=== PATIENT | male | born 1970 | race Caucasian/White ===

== ENCOUNTER → 2017-09-07 | Outpatient (CLI) | payer OTHER ==
[~2017-09-07] MED LIST: ASPIR 8181 MG PO; BRILINTA90 MG PO; LIPITOR 20 MG T20 M1 PO; LISINOPRIL-HCT1 EACH PO; LISINOPRIL20 MG PO; METFORMIN HCL500 MG PO; NITROGLYCERIN0.4 MG SUBLING; NORVASC10 MG PO; ONGLYZA5 MG PO; TYLENOL EXTRA500 MG PO
== END ==
LOC: M.CT 13:43
DX: Z13.6 Encounter for screening for cardiovascular disorders (principal)

== ENCOUNTER 2017-11-04 09:53 | Observation (INO) | payer OTHER ==
[~2017-11-04] VITALS: Ht 193 cm; Wt 111.6 kg
[2017-11-04] VITALS (10 sets, daily range): BP systolic 110–167; BP diastolic 70–98
[~2017-11-04 09:53] MED LIST changes: -ASPIR 8181 MG PO; -BRILINTA90 MG PO; -LISINOPRIL-HCT1 EACH PO; -METFORMIN HCL500 MG PO; -NITROGLYCERIN0.4 MG SUBLING; -NORVASC10 MG PO; -TYLENOL EXTRA500 MG PO
[2017-11-04] MEDS ORDERED: NORVASC10 MG PO (10:07)
[2017-11-04] MEDS ORDERED: LISINOPRIL-HCT1 EACH PO (10:07)
[2017-11-04] MEDS ORDERED: ASPIR 8181 MG PO (10:08)
[2017-11-04] MEDS ORDERED: METFORMIN HCL500 MG PO (10:08)
[2017-11-04 10:22] LABS: HEMATOCRIT 44.9 % (42.0-52.0); HEMOGLOBIN 15.7 gm/dL (14.0-18.0); MCH 30.7 pg (26.0-34.0); MCV 87.9 fL (80.0-100.0); MPV 7.8 fl. (7.2-11.1); RBC 5.11 mil/uL (4.50-6.00); RDW-CV 13.2 % (10.5-14.5); WBC 6.6 thou/uL (4.0-11.0)
[2017-11-04 10:32] LABS: ANION GAP 9 mmol/L (7-16); BUN 17 mg/dL (7-18); CALCIUM 8.7 mg/dL (8.5-10.1); CHLORIDE 99 mmol/L (98-107); CO2 27 mmol/L (21-32); CREATININE 1.1 mg/dL (0.6-1.3); GLUCOSE 239 mg/dL (70-99); POTASSIUM 3.9 mmol/L (3.5-5.1); SODIUM 135 mmol/L (136-145)
[2017-11-04 10:34] LABS: APTT 27.5 Seconds (25.0-31.3); PROTIME 10.1 Seconds (9.20-11.50)
[2017-11-04 10:36] LABS: ALBUMIN 4.4 g/dL (3.4-5.0); ALKALINE PHOSPHATASE 61 U/L (46-116); CHOLESTEROL 152 mg/dL (<200); HDL CHOLESTEROL 39 mg/dL (>40); LDL CHOLESTEROL 72 mg/dL (<100); SGOT 18 U/L (15-37); SGPT 38 U/L (30-65); TC:HDL 3.9 Ratio (Not establshd); TOTAL BILIRUBIN 0.7 mg/dL (<0.1-1.0); TOTAL PROTEIN 8.2 g/dL (6.4-8.2); TRIGLYCERIDE 207 mg/dL (<150); VLDL 41 mg/dL (<40)
[2017-11-04 10:37] LABS: SERUM ASSESSMENT Clear
--- NOTE | 2017-11-04 12:08 | EKG ---
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1970 Requested By: Patrick Toro Order Number: [id number] Reading MD: Patrick Toro Measurements Intervals [place] Rate: 88 P: 24 MT: 146 QRS: -22 QRSD: 104 T: 54 QT: 372 QTc: 450 Interpretive Statements Sinus rhythm Borderline left axis deviation ST elev, probable normal early repol pattern Compared to ECG 07/31/2016 18:05:53 no change Electronically Signed On 11-04-2017 12:08:07 CDT by Patrick Toro [email or web address] <ELECTRONICALLY SIGNED> By: Patrick Toro MD, [facility] 11/04/17 1208 1039 1039 Patrick Toro MD, [facility] /EPI
--- NOTE | 2017-11-04 16:48 | EKG ---
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 11/04/17 1648 1506 1506 Patrick Toro MD, FACC /EPI
--- NOTE | 2017-11-04 18:05 | CARD ---
[address] [address] CARDIAC CATH REPORT Name: SUREKHA SANTAMARIA Room: [address]R.#: [id number] Admission: 11/04/17 Attend Phys: Patrick Toro MD, F Discharge: Date of : 72 Report #: [id number] THIS REPORT FOR: //name// APPROVED REPORT Study performed: 11/04/2017 11:29:04 Patient Details Patient Status: Out-Patient Room #: The patient is a 47 year-old male Event Personnel Patrick Toro Distribution Associate, Lorene Colon RN Fire Tender, Jessie Sin, Agnes Munoz RTR Scrub, Tina Reeves RN Fire Tender Procedures Performed Art Access - R radial artery Left Heart Cath w/or w/o Coronaries [facility]MA Place w/wo Plasty Single LAD Indication Positive stress test Risk Factors Arterial Hypertension, Hypercholesterolemia, Hypertension Procedure Narrative The patient was brought electively to the Cardiac Catheterization Laboratory and was prepped and draped in a sterile manner. The right wrist was infiltrated with 2% Lidocaine subcutaneous anesthesia. A Slender Glidesheath sheath was inserted into the right radial artery. Coronary angiography was performed using coronary diagnostic catheters. The right coronary system was accessed and visualized with a 6 FR JR4 catheter. The left coronary system was accessed and visualized with a 6FR JL4 catheter. The left ventricle was accessed and visualized with a 6FR ANGLED PIGTAIL catheter. Left ventricular/Aortic Valve gradient assessed via catheter pullback. Left ventriculogram was performed in STOREY projection. Closure device was deployed with a 6 Fr Vasc-Band Lng 27cm. The patient tolerated the procedure well and there were no complications associated with the procedure. There was no hematoma. Intraoperative Conscious Sedation Sedation start time: 12:19 Case end Time: 13:08 [place] [address] CARDIAC CATH REPORT Name: SUREKHA SANTAMARIA Room: [address] M.R.#: [id number] Admission: 11/04/17 Attend Phys: Patrick Toro MD, F Discharge: Date of : 72 Report #: [id number] Fentanyl 25 mcg Versed 1 mg Fluoro Time: 6.4 minutes Dose: DAP 14450 cGycm2 95.3 mGy Contrast Type and Amount: Omnipaque 290 ml Coronary Angiography The patient's coronary anatomy is co- dominant. Diagnostic Cath Left Main 0% stenosis LAD 70% stenosis after the first diagonal branch, and 80% after the second diagonal branch. Apical LAD appeared chronically occluded and had faint bridging collaterals Circumflex 0% stenosis Right Coronary 40% proximal and 70% distal stenosis Ramus small vessel Left Ventriculography The left ventricular ejection fraction is estimated to be 55-60%. Left ventricular wall motion abnormalities are not present. There is no mitral insufficiency. Hemodynamics The aortic pressure is 113/71 mmHg with a mean of 92 mmHg. The left ventricular pressure is 121/3 mmHg with a mean of mmHg. The left ventricular end diastolic pressure is 12 mmHg. There was no gradient across the aortic valve upon pullback. Pullback from the left ventricle to the aorta revealed no gradient across the aortic valve. PCI Technique Lesion Anticoagulation was achieved with Heparin. Patient was preloaded with Brillinta. Percutaneous coronary intervention was performed on the mid left anterior descending artery segment. The lesion stenosis prior to intervention was 80% with DELVIN 3 flow. A 6FR XB LAD 3.0 100CM Guide Catheter was used to engage the lm ostium. A IG: BMW 190cm Interventional Guidewire was used to cross the lesion. BALLOON DILATION A Balloon catheter Trek RX 2.5 X 15 was inserted and inflated up to 16.00atm for 13seconds. Repeat angiography revealed the following post-dilatation results: 50% stenosis. Additional Inflation: 16.00atm for 10seconds. Additional Inflation: 8.00atm for 15seconds[place] [address] CARDIAC CATH REPORT Name: SUREKHA SANTAMARIA Room: [address] M.R.#: [id number] Admission: 11/04/17 Attend Phys: Patrick Toro MD, F Discharge: Date of : 72 Report #: [id number] A drug-eluting stent Flye Alpine RX 2.75X38 was inserted and inflated up to 8.00atm for 15seconds. Additional Inflation: 11.00atm for 13seconds. Additional Inflation: 13.00atm for 13seconds. Final angiography reveals 0 % stenosis with DELVIN 3 flow. Conclusion 1. 70% and 80% stenoses noted in the mid lad 2. apical lad appeared chronically occluded 3. 70% stenosis noted of the distal rca 4. successful placement of a drug eluting stent in the mid lad Recommendations Cardiac Rehabilitation Referral Aggressive Medical Therapy Medications Administered Ticagrelor <ELECTRONICALLY SIGNED> By: Patrick Toro MD, [facility] 11/04/171804 04 04Patrick Toro MD, FAC /INF
--- NOTE | 2017-11-04 18:29 | H ---
[place] [address] HISTORY AND PHYSICAL Name: SUREKHA SANTAMARIA Room: [address] M.R.#: [id number] Admission: 11/04/17 Attend Phys: Patrick Toro MD, F Discharge: Date of : 72 Report #: [id number] THIS REPORT FOR: //name// CC: Patrick Andrade DO DATE OF SERVICE: 11/04/2017 HISTORY OF PRESENT ILLNESS: The patient is a 47-year-old , white male who was brought to the outpatient department to undergo a cardiac catheterization. The patient has no previous history of heart disease. Because of risk factors, he recently underwent coronary artery calcium scoring. He had a score of 867 with 576 in the LAD consistent with release extensive coronary calcification. I saw him in the Cardiology Clinic on 09/17/2017 and recommended a nuclear stress test. This was performed on 10/22/2017. He had no chest pain. Perfusion images showed an apical defect that was mostly reversible suggestive of previous infarction with periinfarct ischemia and ejection fraction 50%. Because of his abnormal nuclear stress test and heavy coronary artery calcification, I recommended cardiac catheterization. He denies any chest pain, shortness of breath, palpitation, syncope, edema. PAST MEDICAL HISTORY: Significant for surgery on his elbow, knee and wrist. He has hypertension, diabetes, hyperlipidemia. MEDICATIONS: Consist of amlodipine, atorvastatin, lisinopril/HCTZ, metformin, Onglyza. ALLERGIES: He has no known drug allergies. FAMILY HISTORY: His father had stent. SOCIAL HISTORY: He is . He and his live in [place], [place]. 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 Rarely drinks alcohol. REVIEW OF SYSTEMS: No history of stroke, asthma, peptic ulcer disease, liver disease, kidney disease, cancer or psychiatric illness, chronic skin condition. PHYSICAL EXAMINATION: GENERAL: Revealed a middle-aged male, in no distress. VITAL SIGNS: Blood pressure 140/80, pulse 70. HEENT: He is anicteric. Mucous membranes are moist. NECK: Veins do not appear distended. Neck is supple. CHEST: Clear to auscultation. CARDIAC: [place] [address] HISTORY AND PHYSICAL Name: SUREKHA SANTAMARIA Room: [address]#: [id number] Admission: 11/04/17 Attend Phys: Patrick Toro MD, F Discharge: Date of : 72 Report #: [id number] ABDOMEN: Soft. EXTREMITIES: No edema. SKIN: Warm, dry. NEUROLOGIC: Nonfocal. ECG: Sinus rhythm with no significant ST or T-wave changes. LABORATORY DATA: Potassium 3.9, creatinine 1.1, glucose 239, hemoglobin 15.7. IMPRESSION AND RECOMMENDATIONS: 1. Coronary artery disease. Recommend cardiac catheterization. 2. Diabetes. 3. Hypertension. 4. Hyperlipidemia. The patient apparently underwent screening recently and was found to have no significant carotid stenosis, abdominal aneurysm and ABIs were normal. <ELECTRONICALLY SIGNED> By: Patrick Toro MD, FACC 11/04/17 1829 1154 1229Damaile Toro MD, FACC /nt
[2017-11-05] VITALS: BP 1145/95
[2017-11-05 04:00] VITALS: BP 136/79
[2017-11-05 05:19] LABS: HEMATOCRIT 40.7 % (42.0-52.0); HEMOGLOBIN 14.1 gm/dL (14.0-18.0); MCH 30.5 pg (26.0-34.0); MCHC 34.7 g/dL (28.0-37.0); MPV 7.8 fl. (7.2-11.1); RBC 4.63 mil/uL (4.50-6.00); RDW-CV 13.3 % (10.5-14.5); WBC 7.2 thou/uL (4.0-11.0)
[2017-11-05 08:00] VITALS: BP 141/93
[2017-11-05] MEDS ORDERED: BRILINTA90 MG PO (09:14)
[2017-11-05] MEDS ORDERED: NITROGLYCERIN0.4 MG SUBLING (09:19)
[2017-11-05] MEDS ORDERED: TYLENOL EXTRA500 MG PO (09:20)
[2017-11-05 10:32] VITALS: BP 155/87
--- NOTE | 2017-11-05 11:38 | EKG ---
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1970 Requested By: Patrick Toro Order Number: [id number] Criss MD: Patrick Toro Measurements Intervals [place] Rate: 71 P: 19 TX: 155 QRS: -23 QRSD: 109 T: 30 QT: 420 QTc: 457 Interpretive Statements Sinus rhythm Borderline left axis deviation Compared to ECG 11/04/2017 15:06:17 No significant changes Electronically Signed On 11-05-2017 11:38:11 CDT by Patrick Toro [email or web address] <ELECTRONICALLY SIGNED> By: Patrick Toro MD, [facility] 11/05/17 1138 0756 0756 Patrick Toro MD, [facility] /EPI
--- NOTE | 2017-11-06 17:14 | D ---
[address] [address] DISCHARGE SUMMARY Name: SUREKHA SANTAMARIA Room: [address] M.R.#: [id number] Admission: 11/04/17 Attend Phys: Patrick Toro MD, F Discharge: 11/05/17 Date of : 72 Report #: [id number] THIS REPORT FOR: //name// CC: Patrick Andrade DO DATE OF ADMISSION: 11/04/2017 DATE OF DISCHARGE: 11/05/2017 DISCHARGE DIAGNOSES: 1. Coronary artery disease. 2. Diabetes. 3. Hypertension. 4. Hyperlipidemia. CONSULTANTS: None. PROCEDURES: Left heart catheterization with placement of a drug-eluting stent in the left anterior descending artery via the radial approach. HISTORY OF PRESENT ILLNESS: The patient is a 47-year-old white male who was brought to the outpatient department to undergo cardiac catheterization. The patient has no previous history of heart disease. Because of risk factors, he actually underwent coronary calcium scoring this summer and there was noted to be a score of 867 with 576 in the LAD. I saw him in the cardiology clinic September 17 who recommended nuclear stress test. This was performed on October 22. He had no chest pain. Images showed an apical defect with some magnolia-infarct ischemia. Ejection fraction 50%. Because of his abnormal nuclear stress test, I recommended he undergo cardiac catheterization. He actually has no history of chest pain, shortness of breath, palpitation, syncope or edema. PAST MEDICAL HISTORY: Significant for surgery on his elbow, knee, wrist, hypertension, diabetes and hyperlipidemia. MEDICATIONS: Consist of amlodipine, atorvastatin, lisinopril HCT, metformin, Onglyza. ALLERGIES: He has no known drug allergies. PHYSICAL EXAMINATION: VITAL SIGNS: Blood pressure is 130/70, pulse 70. CHEST: Clear to auscultation. CARDIOVASCULAR: Regular rate and rhythm. ABDOMEN: Soft. EX[place]REMITIES: [place] [address] DISCHARGE SUMMARY Name: SUREKHA SANTAMARIA Room: [address]#: [id number] Admission: 11/04/17 Attend Phys: Patrick Toro MD, F Discharge: 11/05/17 Date of : 72 Report #: [id number] SKIN: Warm, dry. RADIOLOGICAL DATA: ECG, sinus rhythm without ST or T-wave change. LABORATORY DATA: Potassium 3.9, creatinine 1.1, glucose 239, hemoglobin 15.7. HOSPITAL COURSE: The patient was brought to the outpatient department. I performed left heart catheterization from the right radial artery. Results showed normal left ventricular function. The LAD had a mid 70% followed by 80% stenosis. The apical LAD appeared to be chronically occluded with faint bridging collaterals. The circumflex had no significant disease. The right coronary artery had a distal discrete 70% stenosis beyond the acute margin. The results were discussed with the patient. He is felt to have diffuse coronary artery disease. The apical LAD appeared chronically occluded and filled by collaterals. Because of the significant stenosis in the mid LAD, I recommended stenting. He was then given heparin and loaded with Brilinta. I placed a single drug-eluting stent in the mid LAD. He tolerated this well. Following the procedure, there was no hematoma in the right wrist. A ___ band was placed. Fortunately, he had no chest pain, arrhythmias or heart failure after the procedure. Prior to discharge, the patient was ambulating with cardiac rehabilitation. Additional lab work during the day after his procedure included a creatinine of 0.9, his cholesterol was 152, triglyceride 207, HDL 39, LDL 72. Followup hemoglobin was 14.1. Followup ECG after the procedure showed a normal sinus rhythm. The patient was discharged on his home medications that included amlodipine 10 mg a day, Lipitor was increased to 10 mg to further lower his cholesterol, lisinopril HCT for his hypertension. He is not to resume his metformin for 48 hours after the study, but he was to continue Onglyza 5 mg a day. He was also started on his aspirin 81 mg a day. He was given nitroglycerin to take as needed for chest pain, and he was given a prescription for Brilinta 90 mg, which he would take twice a day for up to one year. The patient was discharged to return to the care of Dr. Andrade for routine medical care including management of his diabetes. I recommend that he start an exercise program, maintaining low fat diet. He was given a return to work in 1 week. I plan on seeing him in the cardiology clinic in 6 weeks. He is felt to have a good prognosis from cardiac standpoint. He was to contact my office if he has any bleeding or chest pain. Vital signs: At time of discharge, he had blood pressure 130/80 and a pulse is 80. <ELECTRONICALLY SIGNED> By: Patrick Toro MD, FACC 11/06/17 1714 0904 [id number] Toro MD, FACC /nt
== END 2017-11-05 10:49 | disposition home or self-care (01) ==
LOC: M.CL 09:53 → M.2W 13:25 → M.TBA-CV 13:25 → M.2W 14:04
PROVIDERS: ADMIT Internal Medicine Cardiovascular Disease
DX: I25.10 Atherosclerotic heart disease of native coronary artery without angina pectoris (principal); I10 Essential (primary) hypertension; E11.9 Type 2 diabetes mellitus without complications; E78.5 Hyperlipidemia, unspecified; Z98.890 Other specified postprocedural states; Z79.82 Long term (current) use of aspirin